=== PATIENT | male | born 1985 ===

== ENCOUNTER 2023-02-07 19:13 | Emergency (ER) | payer SELFPAY ==
[~2023-02-07] VITALS: Ht 181 cm; Wt 82.0 kg
[2023-02-07 19:27] VITALS: TEMP 98.4
[2023-02-07 19:58] LABS: HEMATOCRIT 44.9 % (42.0-52.0); HEMOGLOBIN 15.8 g/dl (13.5-18.0); MEAN CELL VOLUME 91 fl (80.0-100.0); MEAN CORPUSCULAR HEMOGLOBIN 32 pg (27-31); MEAN CORPUSCULAR HGB CONC 35 g/dl (33.0-37.0); MEAN PLATELET VOLUME 10.5 fl (7.4-10.4); PLATELET COUNT 177 K/mm3 (130-400); RED BLOOD COUNT 4.92 M/mm3 (4.20-5.60); REDCELL DISTRIBUTION WIDTH-CV 12.3 % (11.5-14.5)
[2023-02-07 20:12] LABS: ALANINE AMINOTRANSFERASE 30 U/L (0-55); ALBUMIN 4.3 gm/dL (3.5-5.0); ALKALINE PHOSPHATASE 45 U/L (40-150); ANION GAP 11 mmol/L (7-16); AST,SGOT 19 U/L (5-34); BILIRUBIN,TOTAL 0.6 mg/dL (0.2-1.2); BLOOD UREA NITROGEN 13 mg/dL (9-21); CALCIUM 9.7 mg/dL (8.4-10.2); CARBON DIOXIDE 26 mmol/L (22-29); CHLORIDE 103 mmol/L (98-107); CREATININE, serum 0.94 mg/dL (0.72-1.25); GLUCOSE 110 mg/dL (70-99); POTASSIUM 3.7 mmol/L (3.5-4.5); SODIUM 140 mmol/L (136-145); TOTAL PROTEIN 7.6 gm/dL (6.2-8.1)
[2023-02-07 20:20] LABS: TROPONIN-I < 0.010 ng/mL (0.00-0.033)
[2023-02-07 21:19] LABS: NEUTROPHILS 5 % (42.0-75.2)
[2023-02-07 21:20] LABS: PLATELET ESTIMATE NORMAL (NORMAL)
[2023-02-07 21:22] LABS: LYMPHOCYTE 94 % (20.0-51.0)
[2023-02-07 21:57] LABS: MONOSCREEN NEGATIVE
[2023-02-07] MEDS ORDERED: KLONOPIN WAFE0.25 MG PO (23:17)
[2023-02-07 23:41] VITALS: BP 138/102; PULSE 90
== END 2023-02-07 23:42 | disposition home or self-care (01) ==
LOC: COL.ER 19:13
PROVIDERS: Emergency Medicine
DX: F41.9 Anxiety disorder, unspecified (principal); R07.89 Other chest pain; K80.20 Calculus of gallbladder without cholecystitis without obstruction; D72.829 Elevated white blood cell count, unspecified; K44.9 Diaphragmatic hernia without obstruction or gangrene
CPT/HCPCS: J1885; Q9967